=== PATIENT | female | born 1940 | race Caucasian/White ===

== ENCOUNTER 2021-09-11 10:20 | Day surgery (SDC) | payer OTHER ==
[~2021-09-11] VITALS: Ht 142.2 cm; Wt 44.1 kg
[~2021-09-11 10:20] MED LIST: SODIUM CHLORIDE 0.9% 1,000 ML ONE
[2021-09-11] MEDS ORDERED: ONDANSETRON HCL 4 MG/2 ML VIAL IVP ONE (10:21)
[2021-09-11 10:50] LABS: COVID AG,FIA SOURCE NASOPHARYNGEAL
[2021-09-11 11:30] LABS: GLUCOMETER DEV NAME(LOC) SDS.; GLUCOSE,POINT OF CARE 124 MG/DL (70-110)
[2021-09-11] MEDS ORDERED: CYAN-53 PO (11:35)
[2021-09-11] MEDS ORDERED: METO25 PO (11:35)
[2021-09-11] MEDS ORDERED: DOXE3TAB4 PO (11:35)
[2021-09-11] MEDS ORDERED: MIRT-92 PO (11:35)
[2021-09-11] MEDS ORDERED: LISI20TA24 PO (11:35)
[2021-09-11] MEDS ORDERED: EMPA25TA PO (11:35)
[2021-09-11] MEDS ORDERED: LATA2.5D14 OU (11:35)
[2021-09-11] MEDS ORDERED: FAMO40TA7 PO (11:35)
[2021-09-11] MEDS ORDERED: METF-445 PO (11:35)
[2021-09-11] MEDS ORDERED: RIVA20TA PO (11:35)
[2021-09-11] MEDS ORDERED: BRIM15DR2 OU (11:35)
[2021-09-11] MEDS ORDERED: PLEC3TAB2 PO (11:35)
[2021-09-11] MEDS ORDERED: PRAZ1 PO (11:35)
[2021-09-11] MEDS ORDERED: SIMV-43 PO (11:35)
[2021-09-11] MEDS ORDERED: QUET25TA36 PO (11:35)
[2021-09-11] MEDS ORDERED: SODIUM CHLORIDE 0.9% 1,000 ML IV ONE (12:00)
== END 2021-09-11 15:00 | disposition home or self-care (01) ==
LOC: SURGERY 10:20
PROVIDERS: ATTEND Internal Medicine Gastroenterology
DX: K29.50 Unspecified chronic gastritis without bleeding (principal); K44.9 Diaphragmatic hernia without obstruction or gangrene; I10 Essential (primary) hypertension; Z82.3 Family history of stroke; E11.9 Type 2 diabetes mellitus without complications; I48.91 Unspecified atrial fibrillation; Z79.899 Other long term (current) drug therapy; Z87.442 Personal history of urinary calculi; Z98.890 Other specified postprocedural states
CPT/HCPCS: 43239; 82962; 87426; 93005; C1769; C9803; J2405; J7030; 88305; 88312; 88313